=== PATIENT | female | born 1985 | race Caucasian/White ===

== ENCOUNTER 2016-12-30 20:55 | Emergency (ER) | payer OTHER ==
[2016-12-30] MEDS ORDERED: Ciprofloxacin TAB* 500 MG PO ONE (21:55)
[2016-12-30] MEDS ORDERED: Phenazopyridine TAB* 100 MG PO ONE (21:55)
[2016-12-30 22:02] VITALS: BP 136/87
--- NOTE | 2016-12-30 22:10 | UC ---
Dov Knowles Aidan, scribed for Lia Bravo MD on 12/30/16 at 2137 . Complaint Female HPI - HPI Summary HPI Summary: 31 y/o female presents to the Urgent Care with a complaint of acute, mild-to- moderate (4/10) episodes of dysuria described as a burning sensation that began several weeks ago and persisted intermittently for roughly a week prior to resolving temporarily. Her symptoms came back intermittently yesterday. Associated symptoms include malodorous urine and feeling like she needs to void without being able to. Pt denies any hematuria. When she stayed well hydrated and drank cranberry juice, her symptoms felt less severe. - History Of Current Complaint Chief Complaint: UCGU Stated Complaint: POSS UTI Time Seen by Provider: 12/30/16 21:11 Hx Obtained From: Patient Hx Last Menstrual Period: 12/15/16 ?: No Onset/Duration: Sudden Onset, Lasting Days - since yesterday, before then her symptoms presented for roughly a week prior to resolving for about a week, Still Present Timing: Intermittent, Lasting Minutes Severity Initially: Moderate Severity Currently: Mild Pain Intensity: 4 - per nurse's note Pain Scale Used: 0-10 Numeric Radiates to: pain does not radiate Character: Burning Aggravating Factor(s): Urination Alleviating Factor(s): Position - staying well hydrated and drinking cranberry juice frequently made her symptoms feel less severe. When she stopped doing this , her symptoms became noticeable again Associated Signs And Symptoms: Negative: Negative - feeling the necessity to void and not being able to do so fully, maloderous urine - Risk Factors Ovarian Torsion Risk Factor: Reproductive Age - Allergies/Home Medications Allergies/Adverse Reactions: Allergies Allergy/AdvReac Type Severity Reaction Status Date / Time No Known Allergies Allergy Verified 10/10/16 15:28 PMH/Surg Hx/FS Hx/Imm Hx - Surgical History Surgical History: Yes Surgery Procedure, Year, and Place: ganglion cyst removal 2001 - Family History Known Family History: Positive: Hypertension - Social History Occupation: Employed Full-time Lives: With Family Alcohol Use: Rare Substance Use Type: None Smoking Status (MU): Never Smoked Tobacco Have You Smoked in the Last Year: No - Immunization History Most Recent Influenza Vaccination: never Most Recent Tetanus Shot: 02/17/15 Most Recent Pneumonia Vaccination: n/a Review of Systems Constitutional: Negative Skin: Negative Eyes: Negative ENT: Negative Respiratory: Negative Cardiovascular: Negative Gastrointestinal: Negative Genitourinary: Dysuria, Other - inability to fully void and feeling the necessity to void, maloderous urine Motor: Negative Neurovascular: Negative Musculoskeletal: Negative Neurological: Negative Psychological: Negative All Other Systems Reviewed And Are Negative: Yes Physical Exam Triage Information Reviewed: Yes Appearance: Well-Nourished Vital Signs: Initial Vital Signs Temp 98.1 F 12/30/16 20:59 Pulse 101 12/30/16 20:59 Resp 18 12/30/16 20:59 BP 136/87 12/30/16 20:59 Pulse Ox 100 12/30/16 20:59 Vital Signs Reviewed: Yes Eye Exam: Normal ENT Exam: Normal ENT: Positive: Normal ENT inspection Neck exam: Normal Neck: Positive: Supple, Nontender, No Lymphadenopathy Respiratory Exam: Normal, Other - no dispnea, no tachypnea, normal respiratory rate Respiratory: Positive: Chest non-tender, Lungs clear, Normal breath sounds, No respiratory distress, No accessory muscle use Cardiovascular Exam: Other Cardiovascular: Positive: RRR, No Murmur, Pulses Normal, Brisk Capillary Refill , Other: - good general skin color Abdominal Exam: Normal Abdomen Description: Positive: Nontender, No Organomegaly, Soft Bowel Sounds: Positive: Present Musculoskeletal Exam: Normal Musculoskeletal: Positive: Strength Intact Neurological Exam: Normal, Other - nonfocal, grossly intact Neurological: Positive: Alert Psychological Exam: Normal, Other - responds easily and appropriately Psychological: Positive: Age Appropriate Behavior Skin Exam: Normal, Other - no visible or reported rash noted Complaint Female Dx - Course Course Of Treatment: Urine results reviewed with pt. Reviewed coa and need for f/u pcp (including need for hematuria recheck). Reviewed need for need for hydration. - Differential Dx/Diagnosis Provider Diagnoses: uti Discharge - Discharge Plan Condition: Stable Disposition: HOME Prescriptions: Ciprofloxacin TAB* [Cipro 500 MG TAB*] 500 mg PO BID #13 tab Phenazopyridine 200 mg (NF) [Pyridium 200 MG tab] 200 mg PO TID PRN #12 tab PRN Reason: Pain Patient Education Materials: Dehydration (ED), Urinary Tract Infection in Women (ED), Hematuria (ED) Referrals: Santosh Isaacs MD [Primary Care Provider] - Additional Instructions: Follow up with your primary care provider in the next couple week, to ensure blood and infection have resolved. Seek medical attention sooner for worse or new problems in the meantime. Drink plenty of fluids. The documentation as recorded by the Dov herrera Aidan accurately reflects the service I personally performed and the decisions made by me, Lia Bravo MD.
== END 2016-12-30 22:08 | disposition home or self-care (01) ==
LOC: UCEAST 20:55
DX: N39.0 Urinary tract infection, site not specified (principal)
CPT/HCPCS: 81003; 87077; 87086; 87186; 99212; A9270-GY; G0463

== ENCOUNTER 2018-02-12 16:51 | Emergency (ER) | payer OTHER ==
[2018-02-12 17:36] VITALS: BP 156/101
--- NOTE | 2018-02-12 17:52 | UC ---
Abdominal Pain Female HPI - HPI Summary HPI Summary: This is sharon Ríos documenting for attending Agustin Rodrigues MD. This patient is a 32 year old F presenting to [facility] with a chief complaint of waxing and waning, LLQ abd pain that radiates to back and suprapubic abd that began 02/07/2018. The patient rates the pain 4/10 in severity. Symptoms aggravated by nothing. Symptoms alleviated by nothing. Patient denies fever, chills, and dysuria. Pt reports a history of ovarian cysts and kidney stones. Medications reviewed. Allergies reviewed. - History of Current Complaint Chief Complaint: UCAbdominalPain Stated Complaint: ABDOMINAL PAIN Time Seen by Provider: 02/12/18 17:44 Hx Obtained From: Patient Hx Last Menstrual Period: [id number] ?: No Onset/Duration: Sudden Onset, Lasting Days, Still Present Timing: Constant Severity Initially: Moderate Severity Currently: Moderate Pain Intensity: 4 Pain Scale Used: 0-10 Numeric Location: Discrete At: LLQ Radiates: Yes Radiates to: Back, Other - suprapubic Aggravating Factor(s): Nothing Alleviating Factor(s): Nothing Associated Signs and Symptoms: Negative: Fever Allergies/Adverse Reactions: Allergies Allergy/AdvReac Type Severity Reaction Status Date / Time No Known Allergies Allergy Verified 02/12/18 17:37 PMH/Surg Hx/FS Hx/Imm Hx Previously Healthy: No Endocrine History: Other Other Endocrine History: Negative diabetes GI/ History: Kidney Stones, Other Other GI/ History: Ovarian cysts - Surgical History Surgical History: Yes Surgery Procedure, Year, and Place: ganglion cyst removal 2001 - Family History Known Family History: Positive: Hypertension - Social History Occupation: Employed Full-time Lives: With Family Alcohol Use: Weekly Substance Use Type: None Smoking Status (MU): Never Smoked Tobacco Have You Smoked in the Last Year: No - Immunization History Most Recent Influenza Vaccination: never Most Recent Tetanus Shot: 02/17/15 Most Recent Pneumonia Vaccination: n/a Review of Systems Constitutional: Other - Negative fever and chills Gastrointestinal: Abdominal Pain Genitourinary: Other - Negative dysuria All Other Systems Reviewed And Are Negative: Yes Physical Exam - Summary Physical Exam Summary: General: well-appearing, mild pain distress Skin: warm, color reflects adequate perfusion, dry Head: normal Eyes: EOMI, CAMILA ENT: normal Neck: supple, nontender Respiratory: CTA, breath sounds present Cardiovascular: RRR Abdomen: soft, tender LLQ to palpation Bowel: present Musculoskeletal: normal, strength/ROM intact Neurological: sensory/motor intact, A&O x3 Psychological: affect/mood appropriate Triage Information Reviewed: Yes Vital Signs: Initial Vital Signs Temp 99.8 F 02/12/18 17:29 Pulse 87 02/12/18 17:29 Resp 16 02/12/18 17:29 BP 156/101 02/12/18 17:29 Pulse Ox 100 02/12/18 17:29 Vital Signs Reviewed: Yes Diagnostics - Radiology CT Abdomen and Pelvis Radiology Interpretation Completed By: Radiologist - CT abdomen and pelvis reveals, per radiologist, 1. FINDINGS MOST CONSISTENT WITH EPIPLOIC APPENDAGITIS AT THE JUNCTION OF THE DESCENDING AND SIGMOID COLON LESS LIKELY DIVERTICULITIS. 2. SMALL BILATERAL NONOBSTRUCTING RENAL CALCULI. ED physician has reviewed this radiology report. Re-Evaluation - Re-Evaluation First Eval Re-Evaluation Time: 19:20 Change: Unchanged Comment: Discussed results and plan of care with pt Abd Pain Female Course/Dx - Course Course Of Treatment: DISCUSSED CT RESULTS WITH THE PATIENT. NO OVARIAN CYST SEEN ON CT SO, OVIARIAN TORSION UNLIKELY. MOST LIKELY DX IS EPIPLOIC APPENDAGITIS. DIVERTICULOSIS ALSO POSSIBLE. DISCUSSED RX CIPRO/FLAGYL WITH THE PATIENT. SHE HAS A HX OF C.DIFF COLITIS. AT THIS TIME NO ABX RX. F/U PMD; RECHECK SOONER IF WORSE. - Differential Dx/Diagnosis Provider Diagnoses: LLQ ABDOMINAL PAIN Discharge - Sign-Out/Discharge Documenting (check all that apply): Patient Departure - Discharge Plan Condition: Stable Disposition: HOME Patient Education Materials: Acute Abdominal Pain (ED) Referrals: Santosh Isaacs MD [Primary Care Provider] - Additional Instructions: FOLLOW UP WITH YOUR DOCTOR FOR YOU LEFT LOWER QUADRANT ABDOMINAL PAIN. THE MOST LIKELY DIAGNOSIS IS EPIPLOIC APPENDENDAGITIS. DIVERTICULITIS IS ALSO A POSSIBILITY. GET RECHECKED FOR ANY WORSENING OF YOUR CONDITION; PAIN, FEVER, YOU FEEL ILL OR QUESTIONS OR CONCERNS. - Billing Disposition and Condition Condition: STABLE Disposition: Home
--- NOTE | 2018-02-12 19:08 | RAD ---
INDICATION: Left lower quadrant and left flank pain. COMPARISON: Comparison is made with a prior CT study from March 22, 2013. TECHNIQUE: A CT scan of the abdomen and pelvis was performed without intravenous and without oral contrast. Contiguous axial sections were obtained from the lung bases through the symphysis pubis. Images were reconstructed in the coronal and sagittal planes. FINDINGS: The lung bases are clear. No pleural effusion is present. The liver and spleen are normal in size without significant focal abnormality on this noncontrast study. The gallbladder appears contracted. No calcified gallstones are seen. No pancreatic ductal distention or calcifications are seen. The adrenal glands and kidneys are normal in size. There are several punctate bilateral renal calculi. No hydronephrosis is seen. No ureteral or bladder calculi are noted. The aorta is normal in caliber without significant calcific plaque. No significant enlarged retroperitoneal lymph nodes are seen. Evaluation of the bowel is limited on this noncontrast study. The stomach, small and large bowel appear nondistended. The appendix is within normal limits. There is focal interstitial stranding adjacent to the junction of the descending and sigmoid colon without evidence for wall thickening. There is mild descending and sigmoid diverticulosis. The uterus is anteverted and normal in size. No free intraperitoneal air or fluid is seen. No significant focal osseous abnormality is seen. IMPRESSION: 1. FINDINGS MOST CONSISTENT WITH EPIPLOIC APPENDAGITIS AT THE JUNCTION OF THE DESCENDING AND SIGMOID COLON LESS LIKELY DIVERTICULITIS. 2. SMALL BILATERAL NONOBSTRUCTING RENAL CALCULI.
== END 2018-02-12 19:40 | disposition home or self-care (01) ==
LOC: UCEAST 16:51
DX: R10.32 Left lower quadrant pain (principal); Z87.442 Personal history of urinary calculi
CPT/HCPCS: 74176; 81003; 84702; 87086; 99211; G0463

== ENCOUNTER 2020-08-30 06:16 | Inpatient (IN) ==
[2020-08-30] MEDS ORDERED: Lactated Ringers 1000 ml BAG 1,000 ML IV ONE ×2 (08:24→15:39)
[2020-08-30] MEDS ORDERED: Buffered Lidocaine 1% SYRIN 1 ml INTRADERM ONE (08:24)
[2020-08-30] MEDS ORDERED: Lactated Ringers 1000 ml BAG 1,000 ML IV SCH ×3 (09:00→16:00)
[2020-08-30] MEDS ORDERED: Oxytocin in LR 20 UNITS/1,000 ML BAG IVPB SCH ×2 (09:00→14:00)
[2020-08-30 09:30] LABS: ABS Eosinophils 0.1 10^3/ul (0-0.6); ABS Lymphocytes 1.7 10^3/ul (1.0-4.8); ABS Monocytes 0.7 10^3/ul (0-0.8); ABS Neutrophils 8.8 10^3/ul (1.5-7.7); Albumin 3.5 g/dL (3.2-5.2); Albumin/Globulin Ratio 1.3 (1-3); BUN/Creatinine Ratio 9.3 (8-20); EGFR African American 157.3 (>60); Eosinophil % 0.5 %; Globulin 2.8 g/dL (2-4); Hematocrit 40 % (35-47); Hemoglobin 14.4 g/dL (12.0-16.0); Lymphocyte % 15.4 %; Mean Corpuscular HGB Conc 36 g/dL (31-36); Mean Corpuscular Hemoglobin 32 pg (27-31); Mean Corpuscular Volume 88 fL (80-97); Mean Platelet Volume 8.6 fL (7.4-10.4); Nucleated Red Blood Cells % 0.1; Platelet Count 116 10^3/uL (150-450); Potassium 3.6 mmol/L (3.5-5.0); Red Blood Count 4.55 10^6 /uL (3.70-4.87); Red Cell Distribution Width 16 % (10-15); Total Bilirubin 0.7 mg/dL (0.2-1.0); Total Protein 6.3 g/dL (6.4-8.9); White Blood Count 11.4 10^3/uL (3.5-10.8)
[2020-08-30 09:35] LABS: Urine Benzodiazepine Screen None Detected (None Detect); Urine Cannabinoids Screen None Detected (None Detect); Urine Opiates Screen None Detected (None Detect)
[2020-08-30 12:16] LABS: Urine Appearance Cloudy; Urine Bilirubin Negative (Negative); Urine Blood 1+ (Negative); Urine Color Straw; Urine Glucose Negative (Negative); Urine Ketones Negative (Negative); Urine Nitrite Negative (Negative); Urine Protein Negative (Negative); Urine Specific Gravity 1.003 (1.010-1.030); Urine Urobilinogen Negative (Negative)
[2020-08-30 12:26] LABS: Urine Bacteria 1+ (Absent); Urine Red Blood Cell Trace(0-2/hpf) (Absent); Urine Squamous Epithelial Cell Present (Absent); Urine White Blood Cell Trace(0-5/hpf) (Absent)
[2020-08-30] MEDS ORDERED: OBEPIDURAL 250 ML EPIDURAL ONE (14:25)
[2020-08-30 15:05] LABS: ABS Lymphocytes 1.7 10^3/ul (1.0-4.8); ABS Monocytes 0.8 10^3/ul (0-0.8); ABS Neutrophils 7.5 10^3/ul (1.5-7.7); Eosinophil % 0.4 %; Hematocrit 37 % (35-47); Hemoglobin 13.4 g/dL (12.0-16.0); Mean Corpuscular HGB Conc 36 g/dL (31-36); Mean Corpuscular Hemoglobin 32 pg (27-31); Mean Corpuscular Volume 89 fL (80-97); Mean Platelet Volume 8.5 fL (7.4-10.4); Platelet Count 117 10^3/uL (150-450); Red Blood Count 4.19 10^6 /uL (3.70-4.87); Red Cell Distribution Width 15 % (10-15)
[2020-08-30 15:21] LABS: Albumin 3.2 g/dL (3.2-5.2); Albumin/Globulin Ratio 1.3 (1-3); BUN/Creatinine Ratio 9.1 (8-20); Calcium 8.8 mg/dL (8.6-10.3); EGFR Non-African American 127.3 (>60); Globulin 2.4 g/dL (2-4); Potassium 3.7 mmol/L (3.5-5.0); Total Bilirubin 0.6 mg/dL (0.2-1.0); Total Protein 5.6 g/dL (6.4-8.9)
[2020-08-30] MEDS ORDERED: Phenylephrine 40 mcg/mL 10mL (400mcg) SYRINGE IV PUSH PRN ×2 (15:39)
[2020-08-30] MEDS ORDERED: Lactated Ringers 1000 ml BAG 500 ML IV PRN ×2 (15:39)
[2020-08-30] MEDS ORDERED: Sodium Citrate/Citric Acid LIQ 15 ML UDC PO PRN (15:39)
[2020-08-30] MEDS ORDERED: OBEPIDURAL 250 ML EPIDURAL SCH (16:00)
[2020-08-30] MEDS ORDERED: Carboprost Tromethamine 250 mcg 1 ml VIAL ONE (23:40)
[2020-08-31] MEDS ORDERED: Glycerin ADULT 2.4 gm SUPP PR PRN (00:03)
[2020-08-31] MEDS ORDERED: Dibucaine 1% OINT 28.35 GM TUBE PR PRN (00:03)
[2020-08-31] MEDS ORDERED: Carboprost Tromethamine 250 mcg 1 ml VIAL IM ONE (00:03)
[2020-08-31] MEDS: Witch Hazel PAD JAR TOPICAL PRN (00:17)
[2020-08-31 00:27] LABS: ABS Lymphocytes 1.4 10^3/ul (1.0-4.8); ABS Neutrophils 12.2 10^3/ul (1.5-7.7); Eosinophil % 0.1 %; Hematocrit 42 % (35-47); Hemoglobin 14.9 g/dL (12.0-16.0); Lymphocyte % 9.4 %; Mean Corpuscular HGB Conc 35 g/dL (31-36); Mean Corpuscular Hemoglobin 31 pg (27-31); Mean Corpuscular Volume 88 fL (80-97); Mean Platelet Volume 8.5 fL (7.4-10.4); Nucleated Red Blood Cells % 0.1; Platelet Count 119 10^3/uL (150-450); Red Blood Count 4.77 10^6 /uL (3.70-4.87); Red Cell Distribution Width 15 % (10-15); White Blood Count 14.6 10^3/uL (3.5-10.8)
[2020-08-31] MEDS ORDERED: Oxytocin in LR 20 UNITS/1,000 ML BAG IVPB SCH (01:00)
[2020-08-31] MEDS ORDERED: Lactated Ringers 1000 ml BAG 1,000 ML IV SCH (01:00)
[2020-08-31] MEDS ORDERED: Ammonia Inhalant 1 EA AMP ONE (01:57)
[2020-08-31 09:53] LABS: ABS Eosinophils 0.1 10^3/ul (0-0.6); ABS Lymphocytes 1.7 10^3/ul (1.0-4.8); ABS Monocytes 0.9 10^3/ul (0-0.8); ABS Neutrophils 11.4 10^3/ul (1.5-7.7); Eosinophil % 0.4 %; Hematocrit 34 % (35-47); Lymphocyte % 11.9 %; Mean Corpuscular HGB Conc 36 g/dL (31-36); Mean Corpuscular Hemoglobin 31 pg (27-31); Mean Corpuscular Volume 88 fL (80-97); Mean Platelet Volume 8.5 fL (7.4-10.4); Platelet Count 112 10^3/uL (150-450); Red Blood Count 3.84 10^6 /uL (3.70-4.87); Red Cell Distribution Width 15 % (10-15); White Blood Count 14.1 10^3/uL (3.5-10.8)
[2020-09-01 09:22] VITALS: BP 118/78
[2020-09-01] MEDS: Witch Hazel PAD JAR TOPICAL PRN (09:34)
== END 2020-09-01 12:35 | disposition home or self-care (01) | DRG 807 ==
LOC: MCHOBOUT 06:16 → MCHOB 08:09
PROVIDERS: ADMIT Obstetrics & Gynecology; ATTEND Obstetrics & Gynecology